=== PATIENT | female | born 1960 | race Caucasian/White ===

== ENCOUNTER → 2020-12-03 10:40 | Outpatient (CLI) | payer OTHER, SELFPAY ==
--- NOTE | 2020-12-17 16:53 | P.HOLT.S_ITS ---
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
== END ==
PROVIDERS: Referring Provider Family Medicine; Visit Provider Family Medicine
DX: R00.2 Palpitations (principal)
CPT/HCPCS: 93242; 93244

== ENCOUNTER → 2021-01-18 15:04 | Outpatient (CLI) | payer OTHER, SELFPAY ==
--- NOTE | 2021-01-18 | DI.MG.S_ITS ---
BILATERAL DIGITAL SCREENING MAMMOGRAM 3D/2D WITH CAD: 01/18/2021 CLINICAL: Routine screening. Family history of breast cancer. Comparison is made to exams dated: 09/16/2016 mammogram, 05/05/2010 mammogram, and 08/03/2007 mammogram - Merged With [facility]. There are scattered fibroglandular elements in both breasts. Current study was also evaluated with a Computer Aided Detection (CAD) system. No significant masses, calcifications, or other findings are seen in either breast. There has been no significant interval change. IMPRESSION: NEGATIVE There is no mammographic evidence of malignancy. A 1 year screening mammogram is recommended. This exam was interpreted at Station ID: [id number]. NOTE: For mammograms, a report in lay terms will be sent to the patient. Approximately 15% of breast malignancies will not be visualized mammographically. In the management of a palpable breast mass, a negative mammogram must not discourage biopsy of a clinically suspicious lesion. Electronically Signed By: Albert Colmenares acr/penrad:01/18/2021 16:03:58 copy to: Betsey De La Cruz letter sent: Normal Exam ACR BI-RADS Category 1: Negative [id number]
== END ==
PROVIDERS: PCP Family Medicine; Referring Provider Family Medicine; Visit Provider Family Medicine
DX: Z12.31 Encounter for screening mammogram for malignant neoplasm of breast (principal); Z80.3 Family history of malignant neoplasm of breast
CPT/HCPCS: 77063; 77067

== ENCOUNTER → 2021-02-22 14:24 | Outpatient (CLI) | payer OTHER, SELFPAY ==
--- NOTE | 2021-02-22 | DI.RAD.S_ITS ---
PROCEDURE: XR KNEE RT 3V INDICATIONS: right knee pain TECHNIQUE: 3 views of the knee were acquired. COMPARISON: None. FINDINGS: Bones: No fractures or dislocations. No suspicious bony lesions. Mild narrowing of the medial femoral tibial joint. Soft tissues: Moderate joint effusion. No suspicious soft tissue calcifications. IMPRESSION: Moderate knee joint effusion and mild medial femoral joint degeneration. Dictated by: Wilfredo Butler [facility] Interpreted: Haroldo Case MD on 02/22/2021 at 16:08 Transcribed by: AMRIT on 02/22/2021 at 16:09 Approved by: Haroldo Case M.D. on 02/22/2021 at 17:29
== END ==
PROVIDERS: PCP Family Medicine; Referring Provider Family Medicine; Visit Provider Family Medicine
DX: M25.561 Pain in right knee (principal); M25.461 Effusion, right knee; M17.11 Unilateral primary osteoarthritis, right knee
CPT/HCPCS: 73562

== ENCOUNTER → 2024-11-12 11:12 | Outpatient (CLI) | payer MEDICARE, SELFPAY ==
--- NOTE | 2024-11-12 11:13 | DI.MG.S_ITS ---
MM screening mammo BI: 11/12/2024. BI-RADS: 0 CLINICAL: 64-year old female for bilateral screening mammogram. Tyrer-Cuzick lifetime risk of 2.9%. No personal or first-degree family history of breast cancer. PRIOR EXAMS 01/18/2021, 09/16/2016. MAMMOGRAPHY TECHNIQUE: 2D and 3D (tomosynthesis) digital mammographic views obtained, with additional images as needed for full coverage. Current study was also evaluated with a Computer Aided Detection (CAD) system. DENSITY B. There are scattered areas of fibroglandular density. MAMMOGRAPHY FINDINGS Right: No suspicious mass, asymmetry, microcalcification, or other abnormality seen. Left: Upper Outer Quadrant, Middle depth: Mass needing additional imaging evaluation. IMPRESSION: Right * No evidence of malignancy. Left (Mass): Upper Outer Quadrant, Middle depth * Incomplete - mass needing additional imaging evaluation. RECOMMENDATIONS Left: Upper Outer Quadrant, Middle depth * Further evaluation with diagnostic mammography and diagnostic ultrasound. Ultrasound to be performed only if needed. OVERALL ASSESSMENT CATEGORY BI-RADS-0: Incomplete - Need Additional Imaging Evaluation. ELECTRONICALLY SIGNED: Dafne Melara M.D. on 11/12/2024 at 11:06:06 PM PT Interpreting Station ID: [id number]
== END ==
PROVIDERS: PCP Student in an Organized Health Care Education/Training Program; Referring Provider Student in an Organized Health Care Education/Training Program; Visit Provider Student in an Organized Health Care Education/Training Program
DX: Z12.31 Encounter for screening mammogram for malignant neoplasm of breast (principal)
CPT/HCPCS: 77063; 77067

== ENCOUNTER → 2024-11-25 10:15 | Outpatient (CLI) | payer MEDICARE, SELFPAY ==
--- NOTE | 2024-11-25 10:16 | DI.MG.S_ITS ---
MM diagnostic mammo unilat LT, US breast LT limited: 11/25/2024 BI-RADS: 2 CLINICAL: 64-year old female for left diagnostic mammogram and left diagnostic breast ultrasound that is a recall from screening on 11/12/2024. Tyrer-Cuzick lifetime risk of 2.9%. No personal or first-degree family history of breast cancer. PRIOR EXAMS Mammogram(s): 11/12/2024, 01/18/2021, 09/16/2016. MAMMOGRAPHY TECHNIQUE: 2D and 3D (tomosynthesis) digital mammographic views obtained, with additional images as needed for full coverage. Current study was also evaluated with a Computer Aided Detection (CAD) system. ULTRASOUND TECHNIQUE TARGETED Left Breast Ultrasound: Real-time ultrasound exam was performed focused to area of clinical and/or imaging concern. Real-time yung scale and color doppler imaging of the area of clinical interest was performed with image documentation. DENSITY Left: B. There are scattered areas of fibroglandular density. MAMMOGRAPHY FINDINGS Left (finding-1): Upper Outer Quadrant, Middle depth, measuring 2.3cm: Correlating with findings on screening mammogram there is a circumscribed, oval, equal- density mass present. ULTRASOUND FINDINGS Left (finding-1): Upper Outer at 2:00, 4 cm from nipple, measuring 2.1 x 1.6 x 2.3 cm: Correlating with findings on mammogram, there is a simple anechoic cyst showing posterior acoustic enhancement. Doppler shows no vascularity. IMPRESSION: Left * No evidence of malignancy with benign findings. RECOMMENDATIONS Bilateral * Annual screening mammography. COMMENTS: Findings and recommendations were conveyed to the patient during today's evaluation. OVERALL ASSESSMENT CATEGORY BI-RADS-2: Benign. The [employer] recommends annual screening mammography beginning at age 40 for women with average risk of breast cancer. ELECTRONICALLY SIGNED: Dafne Melara M.D. on 11/25/2024 at 11:08:49 AM PT Interpreting Station ID: [id number]
== END ==
LOC: MAMMO 10:15
PROVIDERS: PCP Student in an Organized Health Care Education/Training Program; Referring Provider Student in an Organized Health Care Education/Training Program; Visit Provider Student in an Organized Health Care Education/Training Program
DX: R92.8 Other abnormal and inconclusive findings on diagnostic imaging of breast (principal); N60.02 Solitary cyst of left breast; R92.322 Mammographic fibroglandular density, left breast
CPT/HCPCS: 76642; 77065; G0279